=== PATIENT | female | born 1990 | race Caucasian/White ===

== ENCOUNTER 2023-08-30 14:42 | Outpatient (CLI) | payer MEDICAID ==
[~2023-08-30 14:42] MED LIST: ALBU8HFA PO; BECL8.7A7 INH
== END 2023-08-30 23:59 | disposition home or self-care (01) ==
LOC: RAD 14:42
PROVIDERS: ATTEND Obstetrics & Gynecology
DX: O09.92 Supervision of high risk pregnancy, unspecified, second trimester (principal); Z3A.20 20 weeks gestation of pregnancy
CPT/HCPCS: 76811

== ENCOUNTER 2024-03-24 16:03 | Emergency (ER) | payer MEDICAID, SELFPAY ==
[~2024-03-24] VITALS: Ht 157.5 cm; Wt 63.4 kg
[2024-03-24 18:08] LABS: URINE AMPHETAMINE SCREEN NEGATIVE (Neg); URINE BARBITUATE SCREEN NEGATIVE (Neg); URINE BENZODIAZEPINES SCREEN NEGATIVE (Neg); URINE CANNABINOID SCREEN POSITIVE (Neg); URINE COCAINE SCREEN NEGATIVE (Neg); URINE METHADONE SCREEN NEGATIVE (Neg); URINE OPIATE SCREEN NEGATIVE (Neg); URINE PHENCYCLIDINE SCREEN NEGATIVE (Neg)
[2024-03-24] MEDS: azithromycin 250mg tablet PO ONE ×2 (20:00→20:21)
[2024-03-24] MEDS: CefTRIAXone 500MG IM Kit w/LIDOcaine IM ONE (20:00)
[2024-03-24] MEDS: TINIDAZOLE 500 MG TABLET PO ONE (20:21)
[2024-03-24] MEDS: CefTRIAXone 500MG IM Kit w/LIDOcaine (for pt below or = to 150kg) IM ONE (20:21)
[2024-03-24 20:41] VITALS: BP 120/78; PULSE 78; RESP 16; TEMP 97.4; O2SAT 99
== END 2024-03-24 20:45 | disposition home or self-care (01) ==
LOC: EEVIPCON 16:04 → ER 16:04
DX: T76.21XA Adult sexual abuse, suspected, initial encounter (principal); J45.909 Unspecified asthma, uncomplicated; Z88.2 Allergy status to sulfonamides; Z79.899 Other long term (current) drug therapy
CPT/HCPCS: 80305; 99284; J0696

== ENCOUNTER 2024-11-29 18:03 | Emergency (ER) | payer MEDICAID ==
[~2024-11-29] VITALS: Ht 160 cm; Wt 46.5 kg
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
--- NOTE | 2024-11-29 20:09 | ELECTROCARDIOGRAPH REPORT ---
[facility] Test Date: 2024-11-29 Test Time: 20:06:54 Pat Name: MARCIA CHEW Department: [facility] Patient ID: [facility]-[id number] Room: Gender: F [employer]: : 1990 Requested By: JUDY CORREA Order Number: [id number] Reading MD: Dr. Chad Milligan Measurements Intervals [place] Rate: 95 P: 56 GA: 140 QRS: 79 QRSD: 93 T: 45 QT: 396 QTc: 498 Interpretive Statements Sinus rhythm Prolonged QT interval Electronically Signed On 12-02-2024 3:07:[address] Chad Milligan Please click the below link to view image of tracing.
[2024-11-29 20:38] LABS: MEAN PLATELET VOLUME 8.6 FL (7.4-10.4); RED CELL DISTRIBUTION WIDTH 14.5 % (11.5-14.5)
[2024-11-29 20:51] LABS: APTT 24 SECONDS (22-32); INR 1.1 INR
[2024-11-29 20:55] LABS: CREATININE 0.60 MG/DL (0.40-0.90); TOTAL CARBON DIOXIDE 24.7 MMOL/L (24-32); eCRCL 98 ML/MIN; eGFR > 90 ML/MIN
[2024-11-29 21:00] LABS: HCG SERUM QL POSITIVE
[2024-11-29 21:07] LABS: ETHANOL < 10 MG/DL (<10)
[2024-11-29] MEDS: LEVONORGESTREL 1.5MG tablet 1.5 MG TABLET PO ONE (21:20)
[2024-11-29] MEDS: TINIDAZOLE 500 MG TABLET PO ONE (21:20)
[2024-11-29 22:12] LABS: URINE HCG POSITIVE (NEG)
[2024-11-29 22:16] LABS: LEUKOCYTE ESTERASE ,URINE NEGATIVE (Neg); NITRITES, URINE POSITIVE (Neg); OCCULT BLOOD,URINE MODERATE (Neg); UA COLLECTION TYPE VOIDED
[2024-11-29 22:25] LABS: MUCUS STRANDS MODERATE /LPF (Neg); SQUAMOUS EPITHELIAL CELL,UR FEW /LPF (FEW)
[2024-11-29 22:28] LABS: URINE AMPHETAMINE SCREEN NEGATIVE (Neg); URINE BARBITUATE SCREEN NEGATIVE (Neg); URINE BENZODIAZEPINES SCREEN NEGATIVE (Neg); URINE CANNABINOID SCREEN POSITIVE (Neg); URINE COCAINE SCREEN NEGATIVE (Neg); URINE METHADONE SCREEN NEGATIVE (Neg); URINE OPIATE SCREEN NEGATIVE (Neg); URINE PHENCYCLIDINE SCREEN NEGATIVE (Neg)
[2024-11-29] MEDS: CefTRIAXone 500MG IM Kit w/LIDOcaine (for pt below or = to 150kg) IM ONE (22:56)
--- NOTE | 2024-11-30 01:09 | RADIOLOGY REPORT ---
INDICATION: hcg QL positive TECHNIQUE: Multiple real-time grayscale transabdominal sonographic images along with color and duplex Doppler of the uterus and ovaries were obtained. COMPARISON: US US OB on DOS: 08/30/23 FINDINGS: The uterus measures 8.7 x 6.0 x 4.7 cm. The endometrial stripe measures 1.3 cm. No identifi able intrauterine gestation. No evidence of pelvic cul-de-sac free fluid. Right ovary measures 3.4 x 2.2 x 2.2 cm with normal Doppler color flow. Left ovary measures 3.0 x 2.5 x 1.8 cm with normal Doppler color flow. IMPRESSION: 1. Grossly unremarkable pelvic ultrasound. No identifiable intrauterine gestation.
[2024-11-30] MEDS: normal saline 1000ml 1,000 ML IV ONE (03:23)
[2024-11-30] MEDS: normal saline 1000ML IV soln IVB ONE (06:23)
[2024-11-30] MEDS: nicotine 21mg patch - 24 hr TD ONE (09:48)
[2024-11-30 10:33] VITALS: TEMP 98.3
[2024-12-03] MEDS ORDERED: AMOX-117 PO (07:02)
== END 2024-11-30 10:43 | disposition home or self-care (01) ==
LOC: ER 18:04
DX: O26.891 Other specified pregnancy related conditions, first trimester (principal); R06.02 Shortness of breath; J45.909 Unspecified asthma, uncomplicated; Z88.2 Allergy status to sulfonamides; Z79.899 Other long term (current) drug therapy; Z3A.01 Less than 8 weeks gestation of pregnancy
CPT/HCPCS: 36415; 76801; 80053; 80305; 80320; 81001; 81025; 82550; 83735; 84439; 84443; 84702; 84703; 85025; 85610; 85651; 85730; 86140; 86900; 86901; 87077; 87088; 87186; 93005; 96360; 96361; 96372; 99285; J0696; J7030; 76802